=== PATIENT | male | born 1970 | race African-American/Black ===

== ENCOUNTER 2017-04-30 17:11 | Emergency (ER) | payer SELFPAY ==
[~2017-04-30] VITALS: Ht 177.8 cm; Wt 77.3 kg
[2017-04-30 18:00] LABS: HEMATOCRIT 44.9 % (38.0-50.0); HEMOGLOBIN 15.3 G/DL (12.5-16.6); MCH 30.8 PG (29.0-34.0); MCHC 34.1 G/DL (30.0-36.0); MCV 90.3 FL (86-99); PLATELET COUNT 244 K/uL (156-360); RBC DIS.WIDTH-CV 12.3 % (11.8-14.6); RBC DIS.WIDTH-SD 40.8 % (39-53); RED BLOOD COUNT 4.97 M/uL (4.00-5.50); WHITE BLOOD COUNT 7.4 K/uL (4.1-10.2)
[2017-04-30 18:08] LABS: CHLORIDE 104 mEq/L (99-109); POTASSIUM 4.5 mEq/L (3.7-5.4); SODIUM 142 mEq/L (136-147)
[2017-04-30 18:10] LABS: GLUCOSE 121 mg/dL (70-99)
[2017-04-30 18:14] LABS: CREATININE 1.2 mg/dL (0.6-1.3); GFR ESTIMATE (CALCULATED) > 59 mL/min/ (58.99-99999)
[2017-04-30 18:15] LABS: UREA NITROGEN (BUN) 17 mg/dL (9-23)
[2017-04-30 18:20] LABS: TROP-I INTERPRETATION NEGATIVE; TROPONIN-I < 0.01 ng/mL (0.0-0.30)
[2017-04-30] MEDS ORDERED: CEFDINIR300 MG PO (19:17)
[2017-04-30] MEDS ORDERED: ANTIVERT25 MG PO (19:17)
[2017-04-30 19:28] VITALS: BP 130/74
== END 2017-04-30 19:29 | disposition home or self-care (01) ==
LOC: EME 17:11
PROVIDERS: Physician Assistant
DX: H66.91 Otitis media, unspecified, right ear (principal); H81.10 Benign paroxysmal vertigo, unspecified ear; F17.200 Nicotine dependence, unspecified, uncomplicated; Z88.0 Allergy status to penicillin
CPT/HCPCS: 80048; 84484; 85027; 93005; 99281; 99284